=== PATIENT | female | born 1965 | race Two or more races ===

== ENCOUNTER 2023-07-25 11:11 | Emergency (ER) | payer OTHER ==
[~2023-07-25] VITALS: Ht 170.2 cm; Wt 70.3 kg
[2023-07-25] MEDS ORDERED: BUTALBIT-ACETA1 EACH PO (13:12)
== END 2023-07-25 13:23 | disposition home or self-care (01) ==
LOC: ER 11:11
DX: S00.93XA Contusion of unspecified part of head, initial encounter (principal); W19.XXXA Unspecified fall, initial encounter; Y93.9 Activity, unspecified; Y92.9 Unspecified place or not applicable; Y99.9 Unspecified external cause status; Z88.0 Allergy status to penicillin

== ENCOUNTER → 2023-07-27 | Emergency (ER) | payer OTHER ==
[~2023-07-27] VITALS: Ht 170.2 cm; Wt 70.3 kg
[~2023-07-27] MED LIST: BUTALBIT-ACETA1 EACH PO
== END | disposition left against medical advice (07) ==
LOC: ER 16:03
DX: Z69.11 Encounter for mental health services for victim of spousal or partner abuse (principal); Z88.0 Allergy status to penicillin